=== PATIENT | male | born 1985 | race Caucasian/White ===

== ENCOUNTER 2023-11-28 07:52 | Emergency (ER) | payer BC, SELFPAY ==
[2023-11-28 07:54] VITALS: BP 126/90
--- NOTE | 2023-11-28 08:54 | ED.GENMED ---
History of Present Illness
General
Chief Complaint: Abdominal Symptoms
Source: patient
Exam Limitations: none
Time Seen by Provider: 11/28/23 08:40
Nursing documentation reviewed up to this point in time: agreed with
Travel History
Have you had any contact with someone who has COVID-19?: No
Do you have any symptoms of coronavirus? Fever > 100 degrees, chills, cough, shortness of breath, sore throat, loss of taste or smell, muscle aches, or headache?: No
History of Present Illness
History of Present Illness:
38-year-old male with past medical history of ulcerative colitis who presents to the emergency room for evaluation of nausea, vomiting, diarrhea in the setting of known influenza. Patient states that he started feeling ill 4 days ago on Friday
evening�he says that he had a low-grade fever and some nausea. He says that the next day woke up with vomiting and diarrhea. He went to his primary care physician who swabbed him for influenza and it was positive. He was started on Tamiflu and
given Zofran as needed for nausea. He says that despite these medications he actually has had continued nausea and vomiting multiple episodes daily (nonbloody nonbilious). Also reports multiple daily episodes of diarrhea. He says that he has
adjusted his diet to be essentially liquid only but still unable to tolerate things by mouth which prompted him to come to the emergency room to be assessed. He has taken the Zofran at home but says that he is unable to keep the pills down
(prescribed tablets not ODT). He has had mild cough and rhinorrhea as well. No shortness of breath or chest pain. He says he will occasionally get some crampy abdominal pain with diarrhea. He denies any other complaints.
Past History
Past History
ED Past Medical History: Other (ulcerative colitis)
ED Past Surgical History: None
Social History
Tobacco: Non-smoker
Alcohol: None
Drug: None
Personal: Single
Living: with family
Employment: Employed
Family History
Family History: Other (Noncontributory)
Review of Systems
Review of Systems
All Other Systems: ROS reviewed and negative except as documented in HPI and ROS
Constitutional: Reports fever and chills
EENT: Reports runny nose; Denies sore throat
Respiratory: Reports cough; Denies trouble breathing
Cardiac: Denies chest pain
ABD/GI: Reports abdominal pain (Occasionally with bowel movements/diarrhea), nausea, vomiting and diarrhea
: Denies flank pain
Musculoskeletal: Denies neck pain or back pain
Neurological: Denies headache
Phy Exam
Physical Exam
Physical Exam:
General: Awake, alert, oriented x3; no acute distress
Head: Normocephalic, atraumatic
Eyes: Conjunctiva normal, sclera anicteric
Throat: Airway intact, mucous membranes slightly dry
Neck: Trachea midline, supple without meningismus
Lungs: Clear to auscultation bilaterally, no wheezing, rales, rhonchi
Heart: Tachycardia with regular rhythm, no murmurs, gallops, or rubs
Abd: Soft, non distended, nontender to deep palpation
Neuro: Cranial nerves grossly intact, speech fluid
Skin: no rash
Extremities: No edema in extremities, warm and well-perfused
Scores
Heart Failure Risk
Heart Failure Risk Score: Not Applicable
Heart Score for Chest Pain Patients
STEMI patient?: Not applicable
Withdrawal Assessment of Alcohol
Withdrawal Assessment Completed?: Not applicable
Course
Orders/Labs/Results
Orders:
Orders
11/28/23 08:41
0.9% Sodium Chloride 1000 ml [Nss] 1,000 ml IV BOLUS
Ondansetron Injectable [Zofran] 4 mg IV NOW STA
11/28/23 09:09
Complete Blood Count/With Diff Urgent
Comprehensive Metabolic Panel Urgent
Abnormal Lab Results
11/28/23
09:09
MPV 11.0 H fL
(7.4-10.4)
Absolute Lymphs (auto) 0.8 L 10^3/uL
(1.2-3.4)
Absolute Monos (auto) 0.8 H 10^3/uL
(0.1-0.6)
Lymphocytes % 14.7 L %
(20.5-51.1)
Monocytes % 15.7 H %
(1.7-9.3)
Sodium 134 L mmol/L
(135-145)
Glucose 108 H mg/dl
(70-99)
Total Bilirubin 1.4 H mg/dl
(0.2-1.3)
AST 104 H U/L
(17-59)
ALT 90 H U/L
(0-50)
Total Protein 6.2 L g/dl
(6.3-8.2)
11/28/23 09:09
11/28/23 09:09
Vital Signs
Initial and Last Documented VS:
Initial Vital Signs
Temp Pulse Resp BP Pulse Ox
36.7 C 106 16 126/90 96
11/28/23 07:54 11/28/23 07:54 11/28/23 07:54 11/28/23 07:54 11/28/23 07:54
Last Documented Vital Signs
Temp Pulse Resp BP Pulse Ox
36.8 C 75 16 113/82 95
11/28/23 09:22 11/28/23 10:31 11/28/23 10:31 11/28/23 10:31 11/28/23 10:31
MDM/Problems Addressed
Differential Diagnosis Includes:
Influenza/viral illness, UC flare/colitis
MDM/Problems Addressed:
38-year-old male presents for evaluation of nausea, vomiting, diarrhea (also having some mild URI symptoms) in the setting of positive outpatient influenza swab. Presents because he is still having significant vomiting despite Zofran as
outpatient�has not been able to keep tablets down. He is tachycardic otherwise normal vitals. Physical exam as above�he does appear mildly dehydrated. Plan to place an IV check labs including a CBC and a CMP; will treat with some IV fluids and IV
Zofran. Will hold off on repeat influenza swab as he was already swabbed and positive 2 days ago as an outpatient. Will monitor closely reassess after the above.
Labs reviewed: CBC unremarkable; CMP shows mildly abnormal LFTs suspect likely in the setting of viral syndrome�while cholelithiasis is always a consideration with nausea and vomiting he has only occasional crampy pain with bowel movements and no
tenderness on exam; very low clinical suspicion for cholecystitis; no emergent indication for abdominal imaging at this point. IV fluids are in progress, continue to monitor.
Patient p.o. without vomiting here. He had subjective improvement in his nausea with Zofran and is feeling a bit better after fluids. I think he is stable for discharge at this point in time. Advised him to drink plenty of fluids at home will
change Zofran prescription to ODT. Advised to discontinue Tamiflu as I suspect that this is likely contributing to his nausea/vomiting and I think potential adverse effects likely trump any potential benefit for this patient. He is in agreement
with this. He will follow-up with his primary care physician. Spoke to him about return precautions all questions answered.
*Pulse Oximetry
Patient hypoxic: no
*Critical Care Note
Total Time (30-74mins, 75-104mins- exclusive of procedures): Not Applicable
Data Reviewed
Review of Other/Old Records Reveals: Labs
Source: patient and records
Further Testing Considered But Not Given:
Considered abdominal imaging such as an upper abdominal ultrasound as above
ED Attending Note
-
Portions of this chart may have been created with voice recognition software.� Occasional wrong word or��sound alike� substitutions may have occurred due to the inherent limitations of voice recognition software.
Discharge Plan
Departure
Patient Disposition: Home (Routine Discharge)
Date of Disposition: 11/28/23
Time of Disposition: 10:58
Patient with high blood pressure during this ER visit?: No
Discharge Problem:
Influenza, Dehydration, Nausea & vomiting
Instructions: Flu, Adult (DC), Nausea and Vomiting, Adult (DC), Dehydration, Adult ED
Prescriptions:
New
ondansetron 4 mg tablet,disintegrating
4 mg PO TIDPRN PRN (Reason: nausea/vomiting) Qty: 20 0RF
No Action
cholecalciferol (vitamin D3) 2,000 UNITS tablet
4,000 units PO DAILY
prednisone 10 MG tablet
10 mg PO DAILY Qty: 90 0RF
Rx Instructions:
take 50mg daily for 14 days, then decrease by 5mg a day every 7 days
mesalamine 60 ML enema
60 ml [place] DAILY Qty: 30 0RF
mesalamine [Lialda] 1.2 GM tablet,delayed release (DR/EC)
4.8 gm PO DAILY Qty: 120 0RF
Referrals:
Alix Cerna PA [Family Provider] - Call in 1-3 days for appt
Activity Restrictions/Additional Instructions:
Thank you for visiting the Emergency Department at [facility].
1. Please schedule a follow up appointment as directed. Call first thing tomorrow morning to make an appointment.
2. If indicated, please take your medications as instructed and indicated on discharge paperwork.
3. If any of your symptoms do not improve, or persist, or become more severe within 6-12 hours, please return to the emergency department for further care.
4. Please return to the emergency department if you develop a headache, neck pain/stiffness, fever greater than 100.4F, chest pain, shortness of breath, persistent nausea, vomiting, slurred speech, difficulty walking, numbness/tingling, weakness,
signs of infection or any other symptoms that are worrisome to you.
Please call [phone] if you have any questions.
Interventions
Interventions:
*Risk Screen - Suicide Last Done: 11/28/23 07:54
*General Assessment Last Done: 11/28/23 07:54
*Neglect/Abuse Screening Last Done: 11/28/23 07:54
ED- Fall Risk Assessment Last Done: 11/28/23 09:22
*ED COVID-19 Vaccine History Last Done: 11/28/23 09:22
AM-Glvjql-Ssneiptdjz Assessment Last Done: 11/28/23 09:22
[2023-11-28] MEDS: ZOFRAN 4 MG IV (09:07)
[2023-11-28] MEDS: NSS 1000 IV (09:08)
[2023-11-28 09:22] VITALS: BP 114/84; BMI 20.9
[2023-11-28 09:28] LABS: % Basophils 0.4 % (0-2); % Immature Granulocytes 0.4 % (0-0.5); % Lymphocytes 14.7 % (20.5-51.1); % Monocytes 15.7 % (1.7-9.3); % Neutrophils 68.8 % (42.2-75.2); Absolute Lymphocytes 0.8 10^3/uL (1.2-3.4); Absolute Monocytes 0.8 10^3/uL (0.1-0.6); Absolute Neutrophils 3.5 10^3/uL (1.4-6.5); Hematocrit 47.3 % (39.0-52.0); Mean Corp Hgb Conc. 35.9 g/dL (33.0-37.0); Mean Corpuscular Hgb 30.8 pg (27.0-31.0); Mean Corpuscular Volume 85.7 fL (80.0-94.0); Nucleated Red Blood Cells % 0 % (-); Platelet Count 204 10^3/uL (130-400); Red Blood Cell Count 5.52 10^6/uL (4.70-6.10); Red Cell Dist. Width 12.4 % (11.5-14.5); White Blood Cell Count 5.1 10^3/uL (4.8-10.8)
[2023-11-28 09:38] LABS: ALT (SGPT) 90 U/L (0-50); AST (SGOT) 104 U/L (17-59); Albumin 3.7 g/dl (3.5-5.0); Alkaline Phosphatase 74 U/L (38-126); Blood Urea Nitrogen 19 mg/dl (9-20); Calcium 8.5 mg/dl (8.4-10.2); Carbon Dioxide 28 mmol/L (22-30); Chloride 100 mmol/L (98-107); Estimated Creatinine Clearance 86 ml/min; Glucose 108 mg/dl (70-99); Potassium 3.5 mmol/L (3.5-5.1); Sodium 134 mmol/L (135-145); Total Bilirubin 1.4 mg/dl (0.2-1.3); Total Protein 6.2 g/dl (6.3-8.2); eGFR > 60.00
[2023-11-28 10:31] VITALS: BP 113/82
== END 2023-11-28 11:38 | disposition home or self-care (01) ==
LOC: EMR 07:52
PROVIDERS: EMERGENCY PHYSICIAN Emergency Medicine; FAMILY PHYSICIAN Physician Assistant Medical
DX: J11.1 Influenza due to unidentified influenza virus with other respiratory manifestations (principal); E86.0 Dehydration; R11.2 Nausea with vomiting, unspecified; R19.7 Diarrhea, unspecified; R00.0 Tachycardia, unspecified; K51.90 Ulcerative colitis, unspecified, without complications; Z91.048 Other nonmedicinal substance allergy status
CPT/HCPCS: 99284; 96374; 96361; 80053; 85025

== ENCOUNTER 2023-12-02 14:38 | Inpatient (IN) | payer BC, SELFPAY ==
[2023-12-02] VITALS (10 sets, daily range): BP systolic 108–133; BP diastolic 62–87; BMI 21.4; BMI 22.1
[2023-12-02] MEDS: NSS 1000 IV (08:41)
[2023-12-02 08:54] LABS: % Basophils 0.3 % (0-2); % Immature Granulocytes 0.8 % (0-0.5); % Lymphocytes 16.2 % (20.5-51.1); % Monocytes 10.2 % (1.7-9.3); % Neutrophils 70.5 % (42.2-75.2); Absolute Eosinophils 0.1 10^3/uL (0-0.7); Absolute Immature Granulocytes 0.1 10^3/uL (0-0.05); Absolute Lymphocytes 1.1 10^3/uL (1.2-3.4); Absolute Monocytes 0.7 10^3/uL (0.1-0.6); Absolute Neutrophils 4.7 10^3/uL (1.4-6.5); Hematocrit 41.7 % (39.0-52.0); Mean Corpuscular Hgb 30.3 pg (27.0-31.0); Mean Corpuscular Volume 84.2 fL (80.0-94.0); Mean Platelet Volume 10.7 fL (7.4-10.4); Nucleated Red Blood Cells % 0 % (-); Platelet Count 180 10^3/uL (130-400); Red Blood Cell Count 4.95 10^6/uL (4.70-6.10); Red Cell Dist. Width 12.4 % (11.5-14.5); White Blood Cell Count 6.7 10^3/uL (4.8-10.8)
[2023-12-02 09:03] LABS: ALT (SGPT) 105 U/L (0-50); AST (SGOT) 55 U/L (17-59); Albumin 3.1 g/dl (3.5-5.0); Alkaline Phosphatase 87 U/L (38-126); Blood Urea Nitrogen 8 mg/dl (9-20); Calcium 7.8 mg/dl (8.4-10.2); Carbon Dioxide 30 mmol/L (22-30); Chloride 98 mmol/L (98-107); Glucose 143 mg/dl (70-99); Lipase 90 U/L (23-300); Potassium 2.9 mmol/L (3.5-5.1); Sodium 133 mmol/L (135-145); Total Bilirubin 0.8 mg/dl (0.2-1.3); Total Protein 5.4 g/dl (6.3-8.2); eGFR > 60.00
--- NOTE | 2023-12-02 09:11 | ED.GENMED ---
History of Present Illness
General
Chief Complaint: Abdominal Symptoms
Source: patient
Exam Limitations: none
Time Seen by Provider: 12/02/23 07:58
Travel History
Have you had any contact with someone who has COVID-19?: No
Do you have any symptoms of coronavirus? Fever > 100 degrees, chills, cough, shortness of breath, sore throat, loss of taste or smell, muscle aches, or headache?: No
History of Present Illness
History of Present Illness:
38-year-old male presents with persistent illness. He was here last week after having the flu. He was here because he was having trouble keeping things down and vomiting. He presents today for the same. Since being seen he feels like he is
gotten worse. He also notes increased cough. He denies a fever. He is nauseous without significant vomiting. He denies any significant loose stools. No other complaints at this time
Past History
Past History
ED Past Medical History: Other (ulcerative colitis)
ED Past Surgical History: None
Social History
Tobacco: Non-smoker
Alcohol: None
Drug: None
Personal: Single
Living: with family
Employment: Employed
Family History
Family History: Other (Noncontributory)
Phy Exam
Physical Exam
Physical Exam:
General: Well-appearing male no acute respiratory distress
HEENT: Normocephalic atraumatic mucosa dry neck is supple
Heart: Regular rate and rhythm no murmurs
Lungs: Clear to auscultation bilaterally no wheezing
Abdomen mild diffusely tender. No guarding rebound normal bowel sounds nondistended
Extremities: No cyanosis
Course
Orders/Labs/Results
Orders:
Orders
12/02/23 08:05
0.9% Sodium Chloride 1000 ml [Nss] 1,000 ml IV BOLUS
CR Chest - 2 Views Urgent
Comment:
Reason For Exam: cough, sob
12/02/23 08:34
Complete Blood Count/With Diff Urgent
Comprehensive Metabolic Panel Urgent
Lipase Urgent
12/02/23 09:07
Potassium Chloride [KCl] 40 meq PO NOW STA
12/02/23 09:32
Potassium Chloride [KCl] 20 meq 0.9% Sodium Chloride 150 ml [Nss] 150 ml IV NOW
12/02/23 10:16
CT Abd/pelvis W Iv Cont Urgent
Comment:
Reason For Exam: abdominal pain, vomiting
12/02/23 12:34
STOOL [C difficile Antigen & Toxins] Urgent
RACHEL Source: Feces/Stool
Specimen Description:
Stool Culture Urgent
RACHEL Source: Feces/Stool
Specimen Description:
12/02/23 12:56
CRP [C-Reactive Protein] Urgent
Stool For WBC Urgent
RACHEL Source: Feces/Stool
Specimen Description:
Abnormal Lab Results
12/02/23
08:34
MPV 10.7 H fL
(7.4-10.4)
Abs Immat Gran (auto) 0.1 H 10^3/uL
(0-0.05)
Absolute Lymphs (auto) 1.1 L 10^3/uL
(1.2-3.4)
Absolute Monos (auto) 0.7 H 10^3/uL
(0.1-0.6)
Immature Gran % 0.8 H %
(0-0.5)
Lymphocytes % 16.2 L %
(20.5-51.1)
Monocytes % 10.2 H %
(1.7-9.3)
Sodium 133 L mmol/L
(135-145)
Potassium 2.9 L mmol/L
(3.5-5.1)
BUN 8 L mg/dl
(9-20)
Glucose 143 H mg/dl
(70-99)
Calcium 7.8 L mg/dl
(8.4-10.2)
ALT 105 H U/L
(0-50)
Total Protein 5.4 L g/dl
(6.3-8.2)
Albumin 3.1 L g/dl
(3.5-5.0)
12/02/23 08:34
12/02/23 08:34
Vital Signs
Initial and Last Documented VS:
Initial Vital Signs
Temp Pulse Resp BP Pulse Ox
97.9 F 81 16 133/84 98
12/02/23 07:49 12/02/23 07:49 12/02/23 07:49 12/02/23 07:49 12/02/23 07:49
Last Documented Vital Signs
Temp Pulse Resp BP Pulse Ox
97.9 F 83 16 111/81 96
12/02/23 07:49 12/02/23 08:37 12/02/23 08:37 12/02/23 08:36 12/02/23 08:37
MDM/Problems Addressed
Differential Diagnosis Includes:
Patient appears dry on exam. Was here for similar symptoms last week. Will check labs again. Hydrate. Chest x-ray pending given increased cough.
*Critical Care Note
Total Time (30-74mins, 75-104mins- exclusive of procedures): Not Applicable
Update Note
Update Note:
Chest x-ray clear. Patient reexamined still with abdominal tenderness. CT of the abdomen pelvis was ordered which demonstrates pancolitis. Potassium was noted to be 2.9. Patient was here last week for similar symptoms and is getting worse at
home. He was hydrated. He was given IV and p.o. potassium. Discussed findings with GI. Stool studies were ordered however sample not provided. Will admit to hospital for pancolitis, hypokalemia and dehydration
ED Attending Note
-
Portions of this chart may have been created with voice recognition software.� Occasional wrong word or��sound alike� substitutions may have occurred due to the inherent limitations of voice recognition software.
Discharge Plan
Departure
Patient Disposition: Admit
Date of Disposition: 12/02/23
Time of Disposition: 13:02
Admit to: Telemetry
Presentation/result/management discussed w/ accepting MD/DO: Hospitalist
Discharge Problem:
Pancolitis, Hypokalemia
Prescriptions:
No Action
cholecalciferol (vitamin D3) 2,000 UNITS tablet
4,000 units PO DAILY
prednisone 10 MG tablet
10 mg PO DAILY Qty: 90 0RF
Rx Instructions:
take 50mg daily for 14 days, then decrease by 5mg a day every 7 days
mesalamine 60 ML enema
60 ml [place] DAILY Qty: 30 0RF
mesalamine [Lialda] 1.2 GM tablet,delayed release (DR/EC)
4.8 gm PO DAILY Qty: 120 0RF
ondansetron 4 mg tablet,disintegrating
4 mg PO TIDPRN PRN (Reason: nausea/vomiting) Qty: 20 0RF
Referrals:
Alix Cerna PA [Family Provider] -
Interventions
Interventions:
*Risk Screen - Suicide Last Done: 12/02/23 07:49
*General Assessment Last Done: 12/02/23 07:49
*Neglect/Abuse Screening Last Done: 12/02/23 07:49
[2023-12-02] MEDS: KCL 40 MEQ PO (10:18)
[2023-12-02] MEDS: KCL 160 MEQ IV (10:19)
--- NOTE | 2023-12-02 14:04 | HPS.HSE ---
Family Physician
-
Family Physician: Alix Cerna
Chief Complaint
-
Nausea/vomiting/diarrhea
History of Present Illness
38-year-old male with a past medical history of ulcerative colitis on mesalamine presents with a 9-day history of worsening nausea, vomiting, diarrhea, and abdominal pain. Patient was seen in the emergency room on 11/28/2023, diagnosed with the flu,
and discharged after IV hydration and antiemetics. He reports persistent vomiting, diarrhea, and abdominal pain, which he feels has since worsened. His diarrhea is liquid green. Initially there were specks of blood, which has since resolved.
Patient reports bilateral lower quadrant abdominal pain. No fever, no chills.
Medical History
Past Medical History
Past Medical History: Reports Other
Additional Past Medical History:
Ulcerative colitis
Past Surgical History: Reports None and Other
Social History
Tobacco: Non-smoker
Alcohol: None
Living: With Family
Family History
Family History: Not pertinent
Allergies / Home Medications
Allergies reflects when Allergies were last updated in [employer].
Home Medications with original date entered in [employer]
Allergy/Medication List:
Allergies
Allergy/AdvReac Type Severity Reaction Status Date / Time
house dust Allergy sneezing Verified 11/28/23 07:54
Home Medications Table - record
Medication Instructions Recorded Confirmed
[id number]-[id number] 250 2 tab PO BIDPRN PRN mild pain 12/02/23 12/02/23
mg-250 mg-65 mg tablet (Excedrin
Extra Strength)
mesalamine 800 mg tablet,delayed 1,600 mg PO BID Gastrointestinal 12/02/23 12/02/23
release Issue
ondansetron 4 mg disintegrating 4 mg PO Q8H PRN nausea/vomiting 12/02/23 12/02/23
tablet
Review of Systems
-
A 12 point ROS was completed and negative except as noted: Yes
Physical Exam
Vital Signs
Vital Signs
Temp Pulse Resp BP Pulse Ox
97.9 F 83 16 111/81 96
12/02/23 07:49 12/02/23 08:37 12/02/23 08:37 12/02/23 08:36 12/02/23 08:37
Physical Exam
General: No Apparent Distress
HEENT: NormoCephalic, Anicteric, Moist mucous membranes and Atraumatic
Respiratory: Clear
Cardiac: S1/S2 and Regular Rhythm
GI: Soft, Non Distended and Tender (Tender at the lower quadrants bilaterally, no masses guarding or rebound)
Musculoskeletal: No Clubbing, No Cyanosis and No Edema
Skin: Warm and Dry
Neuro: Awake, Alert and Oriented
Psych: Calm
Laboratory Results
-
12/02/23 08:34
12/02/23 08:34
Laboratory Results
Total Bilirubin 0.8 mg/dl (0.2-1.3) 12/02/23 08:34
AST 55 U/L (17-59) 12/02/23 08:34
ALT 105 U/L (0-50) H 12/02/23 08:34
Alkaline Phosphatase 87 U/L (38-126) 12/02/23 08:34
Lipase 90 U/L (23-300) 12/02/23 08:34
Impression/Plan
-
HPI: 38-year-old male with a past medical history of ulcerative colitis on mesalamine presents with a 9-day history of worsening nausea, vomiting, diarrhea, and abdominal pain. Patient was seen in the emergency room on 11/28/2023, diagnosed with the
flu, and discharged after IV hydration and antiemetics. He reports persistent vomiting, diarrhea, and abdominal pain, which he feels has since worsened. His diarrhea is liquid green. Initially there were specks of blood, which has since resolved.
Patient reports bilateral lower quadrant abdominal pain. No fever, no chills.
CT abd/pelvis:
1. � Pancolitis. The appearance as detailed above is most suspicious for ulcerative colitis. Infectious etiology considered less likely.
2. � Hepatic fatty infiltration.
#Probable ulcerative colitis flare
Patient follows with Dr. Condon
Check stool studies, consult GI
Clear liquid diet, IV fluids, antiemetics, continue mesalamine
#Fatty liver
Outpatient follow-up with GI
#Hypokalemia
Repleted by IV and p.o., check Mg level
#Hypovolemic hyponatremia
IV fluids as above
#Hyperglycemia
Check hemoglobin A1c
DVT prophylaxis�SCDs
Full code
[2023-12-02 15:52] LABS: Magnesium 2.3 mg/dl (1.6-2.3); Phosphorus 3.2 mg/dl (2.5-4.5)
--- NOTE | 2023-12-02 17:05 | CON.GI ---
Addendum entered and electronically signed by Jayshree Mar MD 12/02/23 18:14:
I saw and examined the patient.
The GALLERY ASSISTANT or PA's note was reviewed and I agree with the note.
Comment: 38-year-old male with history of ulcerative colitis since 2004 on mesalamine, presenting with complaints of nonbloody diarrhea, nausea, dry heaving, abdominal discomfort and some weight loss in the last month. Reports about 6-8 loose stool
a day, nonbloody, reports being compliant with mesalamine for the most part, has not followed up with GI office recently. Similar symptoms and mom a month ago but resolved quickly but his symptoms continued. Some heartburn, discomfort in the mid
abdomen. No trouble swallowing. No regular NSAID use. Flexible sigmoidoscopy in 2020 with moderate active colitis with positive Cryptosporidium. In the ER, no leukocytosis noted, hyponatremia and hypokalemia, ALT elevated at 105, LFTs in normal
range.
CT with IV and oral contrast showing pancolitis and have fatty liver.
-Nonbloody diarrhea with nausea and dry heaves in the last month
Rule out infectious versus flareup of inflammatory bowel disease
Agree with checking stool for infection, cultures, C. difficile, WBC, Cryptosporidium and Giardia
Will also check CRP and fecal calprotectin
Hold off antibiotics, continue IV hydration, correct electrolytes and replete as needed
Clear liquid diet for now, advance as tolerated
If infectious workup negative, will need flexible sigmoidoscopy.
Continue mesalamine for now.
Follow-up with Dr. Condon as outpatient
Original Note:
Consultation
-
Date/Time Consultation Requested: 12/02/23 1420
Date/Time Consultation Performed: 12/02/23 1700
Requesting Provider: Marcos Gabriel MD
Performing Provider: VERA Summers, Jayshree Mar MD
Reason for Consultation: diarrhea, abdominal pain
Medical History
Chief Complaint / HPI
Chief Complaint: diarrhea, abdominal pain
History of Present Illness:
Pt is a 38yo presents with longstanding ulcerative colitis since 2004 on chronic mesalamine prior cryptosporidium infection, vitamin D deficiency with onset of change in stool pattern with diarrhea for last month. He was recently in ER and
diagnosed with flu. He continued with nausea with dry heaves, abdominal pain and diarrhea and returns for evaluation. On admission CT noted with Pancolitis. The appearance as detailed above is most suspicious for ulcerative colitis. Infectious
etiology considered less likely . Hepatic fatty infiltration. CRP pending.
Pt currently admits to GERD, dry heaves with nausea/vomiting, and 4/10 mid abdominal pain. He is currently having about 6 stools per day. He admits to some streaks of blood but not gross bleeding. + few lbs wt loss with some decreased
appetite over last 2 weeks. Pt denies dysphagia, constipation or black stools. Pt also admits to missing some Mesalamine dose with nausea and vomiting issues over last 2 weeks. Last colonoscopy 03/2021 with UC in remission single ulcer UC valve.
After completed flex sig 06/2021 with UC moderate active colitis in setting of + crypto.
�
Past Medical History
Past Medical History: Other (ulcerative colitis, cryptosporidium infection, vitamin deficiency)
Social History
Tobacco: Non-Smoker
Alcohol: None
Drug: None
Living: With Family
Employment: Employed
Family History
Family History: Other (no family hx IBD)
Allergies / Home Medications
Allergy/AdvReac Type Severity Reaction Status Date / Time
house dust Allergy sneezing Verified 11/28/23 07:54
Medication Instructions Recorded
eltdurh-ujymwbrhqbiwj-ztqsaooq 250 2 tab PO BIDPRN PRN mild pain 12/02/23
mg-250 mg-65 mg tablet (Excedrin
Extra Strength)
mesalamine 800 mg tablet,delayed 1,600 mg PO BID Gastrointestinal 12/02/23
release Issue
ondansetron 4 mg disintegrating 4 mg PO Q8H PRN nausea/vomiting 12/02/23
tablet
Review of Systems
-
History Source: Patient
Constitutional: Reports Fever and Weight Loss
EENT: Reports No Symptoms
Respiratory: Reports Trouble Breathing (mild at times )
Cardiac: Reports Chest Pain (mild at times)
Abdomen/GI: Reports Abdominal Pain, Nausea, Vomiting, Diarrhea and Bloody Stools (streaks of blood)
: Reports No Symptoms
Musculoskeletal: Reports No Symptoms
Skin: Reports No Symptoms
Neurological: Reports Weakness
Endocrine: Reports No Symptoms
Hematologic/Lymphatic: Reports No Symptoms
Vital Signs
Temp Pulse Resp BP Pulse Ox
97.9 F 72 19 114/84 94
12/02/23 07:49 12/02/23 12:00 12/02/23 12:00 12/02/23 13:00 12/02/23 13:45
Physical Exam
Exam
General: Well Developed, Well Nourished and No Apparent Distress
HEENT: Normocephalic, Anicteric and Moist Mucous Membranes
Respiratory: Clear
Cardiac: Regular Rhythm
GI: Soft, Non Distended and Tender (mild tenderness )
Genito-urinary: No Costovertebral Tender
Musculoskeletal: No Clubbing and No Cyanosis
Skin: Warm and Dry
Neuro: Awake, Alert and AO x 3
Psych: Calm
Results
WBC 6.7 10^3/uL (4.8-10.8) 12/02/23 08:34
Hgb 15.0 g/dL (13.0-18.0) 12/02/23 08:34
Hct 41.7 % (39.0-52.0) 12/02/23 08:34
MCV 84.2 fL (80.0-94.0) 12/02/23 08:34
Plt Count 180 10^3/uL (130-400) 12/02/23 08:34
Absolute Neuts (auto) 4.7 10^3/uL (1.4-6.5) 12/02/23 08:34
Sodium 133 mmol/L (135-145) L 12/02/23 08:34
Potassium 2.9 mmol/L (3.5-5.1) L 12/02/23 08:34
Chloride 98 mmol/L (98-107) 12/02/23 08:34
Carbon Dioxide 30 mmol/L (22-30) 12/02/23 08:34
BUN 8 mg/dl (9-20) L 12/02/23 08:34
Creatinine 0.9 mg/dL (0.7-1.3) 12/02/23 08:34
Calcium 7.8 mg/dl (8.4-10.2) L 12/02/23 08:34
Total Bilirubin 0.8 mg/dl (0.2-1.3) 12/02/23 08:34
AST 55 U/L (17-59) 12/02/23 08:34
ALT 105 U/L (0-50) H 12/02/23 08:34
Alkaline Phosphatase 87 U/L (38-126) 12/02/23 08:34
Lipase 90 U/L (23-300) 12/02/23 08:34
Diagnostic Image Results:
12/02/23 �CT Abd/pelvis W Iv Cont
1. � Pancolitis. The appearance as detailed above is most suspicious for ulcerative colitis. Infectious etiology considered less likely.
2. � Hepatic fatty infiltration.
Prior GI Procedures:
Colonoscopy:�03/14/2021 [facility] � - Inactive (Jaramillo Score 0) extensive ulcerative
�� � � � � � � � � � � colitis, in remission, improved since the last
�� � � � � � � � � � � examination. Biopsied throughout the colon.
�� � � � � � � � � � � - A single (solitary) ulcer at the ileocecal valve.
�� � � � � � � � � � � - The examined portion of the ileum was normal.
bx no active quiescent colitis
flex si06/09/2021�[facility] �� Likely UC flare induced by now resolved infection.
�� � � � � � � � � � � - Severe (Jaramillo Score 3) ulcerative colitis, worsened
�� � � � � � � � � � � since the last examination. Biopsied and biopsied for
�� � � � � � � � � � � CMV. bx moderate chronic active colitis
Assessment / Plan
-
Pt is a 38yo presents with longstanding ulcerative colitis since 2004 on chronic mesalamine prior cryptosporidium infection, vitamin D deficiency with onset of change in stool pattern with diarrhea for last month. He was recently in ER and
diagnosed with flu. He continued with nausea with dry heaves, abdominal pain and diarrhea and returns for evaluation. On admission CT noted with Pancolitis. The appearance as detailed above is most suspicious for ulcerative colitis. Infectious
etiology considered less likely . Hepatic fatty infiltration.
-abdominal pain with diarrhea
-nausea/dry heaves
-CT concern for pancolitis
-hx longstanding ulcerative colitis on chronic Mesalamine
-hypokalemia/hyponatremia
-recent flu +
-hx prior cryptosporidium
- hx cryptosporidium
PLAN:etiology of pancolitis related to UC flare, infectious process vs other
CRP pending will add fecal guerrero
stool studies pending to rule out infectious process
cont mesalamine -- currently 1.6 gram BID
pt was also taking Rowasa at HS will restart
abx held on admission
ok for clear diet
consider eventual flex vs colon IP vs OP pending clinical course
-
-
-
Thank you for consultation and allowing me to participate in the patient's care. Please call the biomedical electronics technician GI physician during the after hours with any questions or concerns.
[2023-12-02] MEDS: NSS with KCL 40 MEQ 1000 IV (18:11)
[2023-12-02] MEDS: ASACOL, DELZICOL DR 1600 MG PO (19:55)
[2023-12-02] MEDS: DILAUDID 1 MG IV (20:45)
[2023-12-02] MEDS: ROWASA ENEMA RECTAL (21:59)
[2023-12-03] MEDS: NSS with KCL 40 MEQ 1000 IV (07:23)
[2023-12-03] MEDS: ASACOL, DELZICOL DR 1600 MG PO ×2 (07:24→19:34)
[2023-12-03] MEDS: DILAUDID 0.5 MG IV ×2 (07:29→17:17)
[2023-12-03 07:30] VITALS: BP 119/73
[2023-12-03 07:53] LABS: Hematocrit 41.7 % (39.0-52.0); Hemoglobin 14.4 g/dL (13.0-18.0); Mean Corp Hgb Conc. 34.5 g/dL (33.0-37.0); Mean Corpuscular Hgb 30.7 pg (27.0-31.0); Mean Corpuscular Volume 88.9 fL (80.0-94.0); Mean Platelet Volume 11.4 fL (7.4-10.4); Platelet Count 205 10^3/uL (130-400); Red Blood Cell Count 4.69 10^6/uL (4.70-6.10); Red Cell Dist. Width 12.7 % (11.5-14.5); White Blood Cell Count 7.4 10^3/uL (4.8-10.8)
--- NOTE | 2023-12-03 07:58 | W.PN.HOSP.TC ---
Today's Communication/Plan
-
see bold
Assessment / Plan
Assessment / Plan
HPI: 38-year-old male with a past medical history of ulcerative colitis on mesalamine presents with a 9-day history of worsening nausea, vomiting, diarrhea, and abdominal pain.� Patient was seen in the emergency room on 11/28/2023, diagnosed with the
flu, and discharged after IV hydration and antiemetics.� He reports persistent vomiting, diarrhea, and abdominal pain, which he feels has since worsened.� His diarrhea is liquid green.� Initially there were specks of blood, which has since
resolved.� Patient reports bilateral lower quadrant abdominal pain.� No fever, no chills.
CT abd/pelvis:
1. � Pancolitis. The appearance as detailed above is most suspicious for ulcerative colitis. Infectious etiology considered less likely.
2. � Hepatic fatty infiltration.
#Probable ulcerative colitis flare
Patient follows with Dr. Condon
Stool studies negative for C. difficile, negative for Cryptosporidium/Giardia, negative for Salmonella/Shigella, negative for Campylobacter/Shiga toxin.
Stool cultures pending
GI following, likely will need flex sig
Clear liquid diet, IV fluids, antiemetics, continue mesalamine
#Fatty liver
Outpatient follow-up with GI
#Hypokalemia
Repleted and resolved
#Hypovolemic hyponatremia
IV fluids as above
#Hyperglycemia
Check hemoglobin A1c
DVT prophylaxis�SCDs
Full code
Physical Exam
General: No acute distress
HEENT: Normocephalic, Atraumatic, EOMI, MMM
Respiratory: Clear to Auscultation bilaterally
Cardiac: Normal S1/S2, Regular Rate and Rhythm
GI: Soft, tender at the lower quadrants, Nondistended, Normal Bowel Sounds
Extremities: No Clubbing, Cyanosis, or Edema
Anticipated Discharge: 24 - 48 hours
Subjective/Interval History
-
Date of Service: December 03, 2023
Continues to have diarrhea. Nausea and vomiting resolved. Still having lower abdominal pain.
Objective Data
-
Labs:
Laboratory Results
12/03/23
07:
WBC Pending
Hgb Pending
Hct Pending
Plt Count Pending
Sodium Pending
Potassium Pending
Chloride Pending
Carbon Dioxide Pending
BUN Pending
Creatinine Pending
Glucose Pending
Calcium Pending
Vital Signs:
Vital Signs
Temp Pulse Resp BP Pulse Ox
97.9 F 62 18 109/62 95
12/02/23 23:29 12/02/23 23:29 12/02/23 23:29 12/02/23 23:29 12/02/23 18:43
I&O
12/02/23 12/03/23 12/04/23
06:59 06:59 06:59
Intake Total 2099
Balance 2099
[2023-12-03 08:51] LABS: Blood Urea Nitrogen 5 mg/dl (9-20); Carbon Dioxide 26 mmol/L (22-30); Chloride 104 mmol/L (98-107); Estimated Creatinine Clearance 125 ml/min; Glucose 83 mg/dl (70-99); Magnesium 2.4 mg/dl (1.6-2.3); Phosphorus 3.1 mg/dl (2.5-4.5); Sodium 138 mmol/L (135-145); eGFR > 60.00
[2023-12-03 14:26] LABS: Glycohemoglobin (HgbA1c) 5.7 % (4.0-5.6)
--- NOTE | 2023-12-03 14:31 | W.PN.GI.CBS2 ---
Addendum entered and electronically signed by Jayshree Mar MD 12/03/23 19:04:
I saw and examined the patient.
The SHUTDOWN COORDINATOR or PA's note was reviewed and I agree with the note.
Comment: Patient continues to have nonbloody diarrhea, no abdominal pain. Tolerating diet.
Await stool cultures, stool white cells noted but no C. difficile, Cryptosporidium or Giardia.
Continue mesalamine tablets and Rowasa enema.
Currently on low residue diet.
If stool cultures negative, consider flexible sigmoidoscopy and possible steroids to help with acute symptoms.
Outpatient follow-up with Dr. Condon.
Original Note:
Today's Communication / Plan
-
PLAN:etiology of pancolitis related to UC flare, infectious process vs other
cdiff neg, many WBC's, culture pending add giardia/crypto cx
CRP 27.7, fecal guerrero pending
cont mesalamine -- currently 1.6 gram BID and rowasa
clear diet will allow low residue/low lactose trial
consider eventual flex vs colon IP vs OP pending clinical course if not improving vs empiric course of steroids
Assessment / Plan
-
Pt is a 38yo presents with longstanding ulcerative colitis since 2004 on chronic mesalamine prior cryptosporidium infection, vitamin D deficiency with onset of change in stool pattern with diarrhea for last month. He was recently in ER and
diagnosed with flu. He continued with nausea with dry heaves, abdominal pain and diarrhea and returns for evaluation. On admission CT noted with Pancolitis. The appearance as detailed above is most suspicious for ulcerative colitis. Infectious
etiology considered less likely . Hepatic fatty infiltration.
-abdominal pain with diarrhea
-nausea/dry heaves
-CT concern for pancolitis
-hx longstanding ulcerative colitis on chronic Mesalamine
-hypokalemia/hyponatremia
-recent flu +
-hx prior cryptosporidium
- hx cryptosporidium
PLAN:etiology of pancolitis related to UC flare, infectious process vs other
cdiff neg, many WBC's, culture pending add giardia/crypto cx
CRP 27.7, fecal guerrero pending
cont mesalamine -- currently 1.6 gram BID and rowasa
clear diet will allow low residue/low lactose trial
consider eventual flex vs colon IP vs OP pending clinical course if not improving vs empiric course of steroids
-
Subjective
Subjective
Date of Service: December 03, 2023
12/02 brown stool multiple stools on clear diet still some abdominal pain but feeling improved
Objective
Data Reviewed
Laboratory Data:
Laboratory Results
12/03/23 07:24
12/03/23 07:24
Laboratory Results
Phosphorus 3.1 mg/dl (2.5-4.5) 12/03/23 07:24
Magnesium 2.4 mg/dl (1.6-2.3) H 12/03/23 07:24
Total Bilirubin 0.8 mg/dl (0.2-1.3) 12/02/23 08:34
AST 55 U/L (17-59) 12/02/23 08:34
ALT 105 U/L (0-50) H 12/02/23 08:34
Alkaline Phosphatase 87 U/L (38-126) 12/02/23 08:34
Lipase 90 U/L (23-300) 12/02/23 08:34
Vital Signs and I&O:
Vital Signs
Temp Pulse Resp BP Pulse Ox
97.7 F 69 18 119/73 100
12/03/23 07:30 12/03/23 07:30 12/03/23 07:30 12/03/23 07:30 12/03/23 07:30
I&O
12/02/23 12/03/23 12/04/23
06:59 06:59 06:59
Intake Total 2099
Balance 2099
Physical Exam
Physical Exam
HEENT: Anicteric and Moist mucous membranes
Cardiology: Normal Sinus Rhythm
Pulmonary: Clear
GI: Soft, Non Distended and Tender (minimal)
Extremities: No Edema
Neuro: Non Focal
[2023-12-03 15:20] VITALS: BP 117/75
[2023-12-03 16:02] VITALS: BMI 22.1
--- NOTE | 2023-12-03 16:13 | CM ---
Patient seen bedside.
IA completed.
Patient lives with parents in a 2 story home.
Patient independent prior to admission.
Patient drives and works.
Patient with no hx VN.
Denies home care needs.
Plan: home no needs anticiapted.
[2023-12-03] MEDS: ROWASA ENEMA RECTAL (19:38)
[2023-12-03] MEDS: NSS with KCL 20 MEQ 1000 IV (21:20)
[2023-12-03 23:29] VITALS: BP 103/59
[2023-12-04 07:30] VITALS: BP 107/77
--- NOTE | 2023-12-04 07:31 | W.PN.HOSP.TC ---
Today's Communication/Plan
-
see bold
Assessment / Plan
Assessment / Plan
HPI: 38-year-old male with a past medical history of ulcerative colitis on mesalamine presents with a 9-day history of worsening nausea, vomiting, diarrhea, and abdominal pain.� Patient was seen in the emergency room on 11/28/2023, diagnosed with the
flu, and discharged after IV hydration and antiemetics.� He reports persistent vomiting, diarrhea, and abdominal pain, which he feels has since worsened.� His diarrhea is liquid green.� Initially there were specks of blood, which has since
resolved.� Patient reports bilateral lower quadrant abdominal pain.� No fever, no chills.
CT abd/pelvis:
1. � Pancolitis. The appearance as detailed above is most suspicious for ulcerative colitis. Infectious etiology considered less likely.
2. � Hepatic fatty infiltration.
#Probable ulcerative colitis flare
Patient follows with Dr. Condon
Stool studies negative for C. difficile, negative for Cryptosporidium/Giardia, negative for Salmonella/Shigella, negative for Campylobacter/Shiga toxin.
Stool cultures pending
GI following, recommend continue mesalamine p.o. and suppository
Tolerating low residue diet, continue IV fluids, pain meds
#Fatty liver
Outpatient follow-up with GI
#Hypokalemia
Repleted and resolved
#Hypovolemic hyponatremia
IV fluids as above
#Hyperglycemia
Check hemoglobin A1c
DVT prophylaxis�SCDs
Full code
Physical Exam
General: No acute distress
HEENT: Normocephalic, Atraumatic, EOMI, MMM
Respiratory: Clear to Auscultation bilaterally
Cardiac: Normal S1/S2, Regular Rate and Rhythm
GI: Soft, tender at the lower quadrants, Nondistended, Normal Bowel Sounds
Extremities: No Clubbing, Cyanosis, or Edema
Anticipated Discharge: Within 24 hours
Subjective/Interval History
-
Date of Service: December 04, 2023
Diarrhea and abdominal pain improving. Tolerating his low residue diet.
Objective Data
-
Labs:
Laboratory Results
12/04/23
06:00
WBC Pending
Hgb Pending
Hct Pending
Plt Count Pending
Sodium Pending
Potassium Pending
Chloride Pending
Carbon Dioxide Pending
BUN Pending
Creatinine Pending
Glucose Pending
Calcium Pending
Vital Signs:
Vital Signs
Temp Pulse Resp BP Pulse Ox
97.4 F 79 20 103/59 97
12/03/23 23:29 12/03/23 23:29 12/03/23 23:29 12/03/23 23:29 12/03/23 23:29
I&O
12/03/23 12/04/23 12/05/23
06:59 06:59 06:59
Intake Total 2099
Balance 2099
[2023-12-04] MEDS: ASACOL, DELZICOL DR 1600 MG PO ×2 (08:02→20:00)
[2023-12-04] MEDS: DILAUDID 0.5 MG IV (08:02)
[2023-12-04] MEDS: NSS with KCL 20 MEQ 1000 IV (08:03)
[2023-12-04 08:38] LABS: Hematocrit 42.4 % (39.0-52.0); Hemoglobin 14.5 g/dL (13.0-18.0); Mean Corp Hgb Conc. 34.2 g/dL (33.0-37.0); Mean Corpuscular Volume 87.8 fL (80.0-94.0); Platelet Count 236 10^3/uL (130-400); Red Blood Cell Count 4.83 10^6/uL (4.70-6.10); Red Cell Dist. Width 12.7 % (11.5-14.5)
[2023-12-04 09:05] LABS: Blood Urea Nitrogen < 2 mg/dl (9-20); Calcium 7.9 mg/dl (8.4-10.2); Carbon Dioxide 26 mmol/L (22-30); Chloride 108 mmol/L (98-107); Estimated Creatinine Clearance 125 ml/min; Glucose 82 mg/dl (70-99); Potassium 4.6 mmol/L (3.5-5.1); Sodium 136 mmol/L (135-145); eGFR > 60.00
[2023-12-04 09:24] LABS: Magnesium 2.4 mg/dl (1.6-2.3)
[2023-12-04 15:30] VITALS: BP 115/84
[2023-12-04] MEDS: ROWASA ENEMA RECTAL (20:05)
--- NOTE | 2023-12-04 20:21 | W.PN.GI.CBS2 ---
Today's Communication / Plan
-
PLAN:etiology of pancolitis related to UC flare, infectious process vs other
, Stool cultures, Cryptosporidium and Giardia cdiff neg, many WBC's noted in the stool.
CRP 27.7, fecal guerrero pending
cont mesalamine -- currently 1.6 gram BID and rowasa enema
Stool seem to be improving but still not completely better
Will start prednisone 40 mg a day with prolonged taper, decrease 10 mg/week
Will arrange for follow-up with Dr. Condon as outpatient
Tolerating low residue diet
If symptoms not better,consider eventual flex vs colon IP vs OP pending clinical course
Will follow
Assessment / Plan
-
Pt is a 38yo presents with longstanding ulcerative colitis since 2004 on chronic mesalamine prior cryptosporidium infection, vitamin D deficiency with onset of change in stool pattern with diarrhea for last month. He was recently in ER and
diagnosed with flu. He continued with nausea with dry heaves, abdominal pain and diarrhea and returns for evaluation. On admission CT noted with Pancolitis. The appearance as detailed above is most suspicious for ulcerative colitis. Infectious
etiology considered less likely . Hepatic fatty infiltration.
-abdominal pain with diarrhea
-nausea/dry heaves
-CT concern for pancolitis
-hx longstanding ulcerative colitis on chronic Mesalamine
-hypokalemia/hyponatremia
-recent flu +
-hx prior cryptosporidium
- hx cryptosporidium
PLAN:etiology of pancolitis related to UC flare, infectious process vs other
, Stool cultures, Cryptosporidium and Giardia cdiff neg, many WBC's noted in the stool.
CRP 27.7, fecal guerrero pending
cont mesalamine -- currently 1.6 gram BID and rowasa enema
Stool seem to be improving but still not completely better
Will start prednisone 40 mg a day with prolonged taper, decrease 10 mg/week
Will arrange for follow-up with Dr. Condon as outpatient
Tolerating low residue diet
If symptoms not better,consider eventual flex vs colon IP vs OP pending clinical course
Will follow
-
Subjective
Subjective
Date of Service: December 04, 2023
Patient denies any abdominal pain, reports 4 bowel movements today with 1 bowel movement with some blood
Objective
Data Reviewed
Laboratory Data:
Laboratory Results
12/04/23 07:31
12/04/23 07:31
Laboratory Results
Phosphorus 3.0 mg/dl (2.5-4.5) 12/04/23 07:31
Magnesium 2.4 mg/dl (1.6-2.3) H 12/04/23 07:31
Total Bilirubin 0.8 mg/dl (0.2-1.3) 12/02/23 08:34
AST 55 U/L (17-59) 12/02/23 08:34
ALT 105 U/L (0-50) H 12/02/23 08:34
Alkaline Phosphatase 87 U/L (38-126) 12/02/23 08:34
Lipase 90 U/L (23-300) 12/02/23 08:34
Vital Signs and I&O:
Vital Signs
Temp Pulse Resp BP Pulse Ox
97.3 F 66 16 115/84 99
12/04/23 15:30 12/04/23 15:30 12/04/23 15:30 12/04/23 15:30 12/04/23 15:30
I&O
12/03/23 12/04/23 12/05/23
06:59 06:59 06:59
Intake Total 2099 800 / 800
Balance 2099 800
Physical Exam
Physical Exam
GI: Soft, Non Distended and Non Tender
[2023-12-04] MEDS: ROXICODONE 10 MG PO (21:02)
[2023-12-04] MEDS: ROWASA ENEMA 60 ML RECTAL (21:02)
[2023-12-05 00:01] VITALS: BP 110/69
[2023-12-05] MEDS: NSS with KCL 20 MEQ 1000 IV (00:07)
[2023-12-05 06:36] LABS: Calprotectin, Fecal 399 ug/g (<=49)
[2023-12-05 07:25] VITALS: BP 127/69
[2023-12-05] MEDS: ASACOL, DELZICOL DR 1600 MG PO (07:56)
[2023-12-05] MEDS: DELTASONE 40 MG PO (07:57)
--- NOTE | 2023-12-05 08:15 | W.PN.HOSP.TC ---
Today's Communication/Plan
-
Cleared by GI for discharge today
Assessment / Plan
Assessment / Plan
HPI: 38-year-old male with a past medical history of ulcerative colitis on mesalamine presents with a 9-day history of worsening nausea, vomiting, diarrhea, and abdominal pain.� Patient was seen in the emergency room on 11/28/2023, diagnosed with the
flu, and discharged after IV hydration and antiemetics.� He reports persistent vomiting, diarrhea, and abdominal pain, which he feels has since worsened.� His diarrhea is liquid green.� Initially there were specks of blood, which has since
resolved.� Patient reports bilateral lower quadrant abdominal pain.� No fever, no chills.
CT abd/pelvis:
1. � Pancolitis. The appearance as detailed above is most suspicious for ulcerative colitis. Infectious etiology considered less likely.
2. � Hepatic fatty infiltration.
#Probable ulcerative colitis flare
Patient follows with Dr. Condon
Stool studies negative for C. difficile, negative for Cryptosporidium/Giardia, negative for Salmonella/Shigella, negative for Campylobacter/Shiga toxin.
Stool cultures neg, many white blood cells seen on stool leukocyte
GI following, recommend continue mesalamine p.o. and suppository
GI started prednisone 40 mg daily 12/04, recommended prolonged taper decrease by 10 mg/week
Cleared by GI for discharge, follow-up with his usual GI doctor in the office
#Fatty liver
Outpatient follow-up with GI
#Hypokalemia
Repleted and resolved
#Hypovolemic hyponatremia
IV fluids as above
#Hyperglycemia
Hemoglobin A1c 5.7
DVT prophylaxis�SCDs
Full code
Physical Exam
General: No acute distress
HEENT: Normocephalic, Atraumatic, EOMI, MMM
Respiratory: Clear to Auscultation bilaterally
Cardiac: Normal S1/S2, Regular Rate and Rhythm
GI: Soft, mild tender at the lower quadrants, Nondistended, Normal Bowel Sounds
Extremities: No Clubbing, Cyanosis, or Edema
Anticipated Discharge: Today
Subjective/Interval History
-
Date of Service: December 05, 2023
Diarrhea and abdominal pain improving. Stools are more formed. Tolerating his diet.
Objective Data
-
Labs:
Laboratory Results
12/05/23
08:10
WBC Pending
Hgb Pending
Hct Pending
Plt Count Pending
Sodium Pending
Potassium Pending
Chloride Pending
Carbon Dioxide Pending
BUN Pending
Creatinine Pending
Glucose Pending
Calcium Pending
Vital Signs:
Vital Signs
Temp Pulse Resp BP Pulse Ox
97.8 F 66 18 127/69 96
12/05/23 07:25 12/05/23 07:25 12/05/23 07:25 12/05/23 07:25 12/05/23 07:25
I&O
12/04/23 12/05/23 12/06/23
06:59 06:59 06:59
Intake Total 1979 1700 / 1700
Balance 1979 1700 / 1700
[2023-12-05 09:04] LABS: Hematocrit 42.7 % (39.0-52.0); Hemoglobin 14.4 g/dL (13.0-18.0); Mean Corp Hgb Conc. 33.7 g/dL (33.0-37.0); Mean Platelet Volume 11.3 fL (7.4-10.4); Platelet Count 270 10^3/uL (130-400); Red Cell Dist. Width 12.6 % (11.5-14.5); White Blood Cell Count 5.8 10^3/uL (4.8-10.8)
[2023-12-05 09:31] LABS: Chloride 101 mmol/L (98-107); Sodium 135 mmol/L (135-145)
[2023-12-05 09:43] LABS: Blood Urea Nitrogen < 2 mg/dl (9-20); Calcium 8.1 mg/dl (8.4-10.2); Carbon Dioxide 24 mmol/L (22-30); Estimated Creatinine Clearance > 125 ml/min; Glucose 88 mg/dl (70-99); Magnesium 2.1 mg/dl (1.6-2.3); Phosphorus 2.9 mg/dl (2.5-4.5); eGFR > 60.00
--- NOTE | 2023-12-05 10:47 | W.PN.GI.CBS2 ---
Today's Communication / Plan
-
tolerating low residue diet
pt improving on prednisone
Assessment / Plan
-
Pt is a 38yo presents with longstanding ulcerative colitis since 2004 on chronic mesalamine prior cryptosporidium infection, vitamin D deficiency with onset of change in stool pattern with diarrhea for last month. He was recently in ER and
diagnosed with flu. He continued with nausea with dry heaves, abdominal pain and diarrhea and returns for evaluation. On admission CT noted with Pancolitis. The appearance as detailed above is most suspicious for ulcerative colitis. Infectious
etiology considered less likely . Hepatic fatty infiltration.
-abdominal pain with diarrhea
-nausea/dry heaves
-CT concern for pancolitis
-hx longstanding ulcerative colitis on chronic Mesalamine
-hypokalemia/hyponatremia
-recent flu +
-hx prior cryptosporidium
- hx cryptosporidium
PLAN: pancolitis, likely related to UC flare
-Stool cultures, Cryptosporidium and Giardia cdiff neg, many WBC's noted in the stool.
CRP 27.7, fecal guerrero 399
-cont mesalamine -- currently 1.6 gram BID and rowasa enema
-pt started on prednisone 40 mg a day with prolonged taper, decrease 10 mg/week; feeling much better
-abdominal pain improved (down to 1 out of 10)
-had formed bowel movement this AM with no blood
-tolerating low residue diet
-Will arrange for follow-up with Dr. Condon as outpatient
-
Subjective
Subjective
Date of Service: December 05, 2023
Feeling much better.
Abdominal pain improved (11/12), had formed BM without blood this AM
no n/v or fever/chills
Objective
Data Reviewed
Laboratory Data:
Laboratory Results
12/05/23 08:10
12/05/23 08:10
Laboratory Results
Phosphorus 2.9 mg/dl (2.5-4.5) 12/05/23 08:10
Magnesium 2.1 mg/dl (1.6-2.3) 12/05/23 08:10
Total Bilirubin 0.8 mg/dl (0.2-1.3) 12/02/23 08:34
AST 55 U/L (17-59) 12/02/23 08:34
ALT 105 U/L (0-50) H 12/02/23 08:34
Alkaline Phosphatase 87 U/L (38-126) 12/02/23 08:34
Lipase 90 U/L (23-300) 12/02/23 08:34
Vital Signs and I&O:
Vital Signs
Temp Pulse Resp BP Pulse Ox
97.8 F 66 18 127/69 96
12/05/23 07:25 12/05/23 07:25 12/05/23 07:25 12/05/23 07:25 12/05/23 07:25
I&O
12/04/23 12/05/23 12/06/23
06:59 06:59 06:59
Intake Total 1979 1700 / 1700
Balance 1979 170 / 170
Physical Exam
Physical Exam
GI: Soft, Non Distended, Non Tender and Normal Bowel Sounds
--- NOTE | 2023-12-05 12:00 | W.DCSUMMARY ---
Discharge Summary
Discharge Data
Date of Admission: 12/02/23
Date of Discharge: 12/05/23
-
Pending Results: No
Hospital Course
Discharge diagnoses:
Ulcerative colitis flare
Dehydration
Hypokalemia
Fatty liver
Hypovolemic hyponatremia
Hyperglycemia, hemoglobin A1c 5.7
Consults: GI
CT abdomen pelvis:
1. � Pancolitis. The appearance as detailed above is most suspicious for ulcerative colitis. Infectious etiology considered less likely.
2. � Hepatic fatty infiltration.
Hospital course:
38-year-old male with a past medical history of ulcerative colitis on mesalamine presents with a 9-day history of worsening nausea, vomiting, diarrhea, and abdominal pain.� Patient was seen in the emergency room on 11/28/2023, diagnosed with the flu,
and discharged after IV hydration and antiemetics.� He reports persistent vomiting, diarrhea, and abdominal pain, which he feels has since worsened.� His diarrhea is liquid green.
Patient was seen in conjunction with GI for ulcerative colitis flare. Stool studies were negative for�C. difficile, negative for Cryptosporidium/Giardia, negative for Salmonella/Shigella, negative for Campylobacter/Shiga toxin. Stool cultures were
also negative, there were many white blood cells seen in stools.
Patient was treated with oral mesalamine as well as mesalamine enemas. He was started on prednisone 40 mg p.o. daily. His diarrhea improved, and became more formed. He did have some blood initially, that resolved. He tolerated his low residue
diet.
Patient also had hyponatremic hypovolemia, and hypokalemia. He received IV fluids and potassium replacement. His hyponatremia and hypokalemia resolved.
Patient felt remarkably better, and is medically stable for discharge. He will be discharged on oral mesalamine, mesalamine suppository, as well as a prednisone taper. GI would like him to take 40 mg daily, then decrease by 10 mg every week. He
has been instructed to follow-up with his primary care doctor in 1 week, as well as his usual GI doctor in the office.
Disposition: Home self-care
Discharge planning: Required 36 minutes
Discharge Plan
-
Patient Disposition: Home (Routine Discharge)
Discharge Diagnosis/Procedures: Ulcerative colitis flare, dehydration, hypokalemia
Condition: Good
Diet: Low Residue
Activity: As tolerated
Driving Restrictions: As prior to admission
Referrals:
Alix Cerna PA [Family Provider] - in one week
Alexa Condon DO [Active] - in two to three weeks
Prescriptions:
New
oxycodone 5 mg Tablet
5 mg PO Q4HPRN PRN (Reason: moderate pain) Qty: 20 0RF
prednisone 10 mg tablet
10 mg PO .TAPER Qty: 70 0RF
Rx Instructions:
Take 40mg daily x7 days, 30mg daily x7 days,
20mg daily x7 days, 10mg daily x 7 days.
mesalamine 4 gram/60 mL Enema
4 g NC HS 30 Days Qty: 1800 0RF
Continued
ondansetron 4 mg Tablet,Disintegrating
4 mg PO Q8H PRN (Reason: nausea/vomiting)
Excedrin Extra Strength 250-250-65 mg Tablet
2 tab PO BIDPRN PRN (Reason: mild pain)
mesalamine 800 mg Tablet,Delayed Release (Dr/Ec)
1,600 mg PO BID
Discharge Orders:
Discharge Patient (As Directed); Ordered 12/05/23
Ordered By: Marcos Gabriel
[2023-12-05] MEDS: NSS with KCL 20 MEQ IV (12:07)
--- NOTE | 2023-12-05 12:39 | CM ---
Chart reviewed home when stable, no needs
Plan; Home no needs.
== END 2023-12-05 15:08 | disposition home or self-care (01) | DRG 386 ==
LOC: 4 WEST ACU 14:38
PROVIDERS: Nurse Practitioner Adult Health; Physician Assistant; ADMITTING PHYSICIAN Family Medicine; CONSULT PHYSICIAN Internal Medicine Gastroenterology; EMERGENCY PHYSICIAN Emergency Medicine; FAMILY PHYSICIAN Physician Assistant Medical
DX: K51.90 Ulcerative colitis, unspecified, without complications (principal); E87.1 Hypo-osmolality and hyponatremia; E87.6 Hypokalemia; E86.0 Dehydration; J30.89 Other allergic rhinitis; K76.0 Fatty (change of) liver, not elsewhere classified; E86.1 Hypovolemia; R73.9 Hyperglycemia, unspecified; E55.9 Vitamin D deficiency, unspecified; K21.9 Gastro-esophageal reflux disease without esophagitis; Z86.19 Personal history of other infectious and parasitic diseases
CPT/HCPCS: 71046; 74177; 80048; 80053; 83036; 83690; 83735; 83993; 84100; 85025; 85027; 86140; 87045; 87046; 87324; 87328; 87329; 87427; 87449; 89055; 96361; 96374; 99285; Q9967

== ENCOUNTER → 2024-03-09 16:14 | Outpatient (REF) | payer BC, SELFPAY ==
[2024-03-09 17:44] LABS: % Basophils 1.5 % (0-2); % Eosinophils 11.6 % (0-6); % Immature Granulocytes 0.6 % (0-0.5); % Lymphocytes 29.9 % (20.5-51.1); % Monocytes 14.5 % (1.7-9.3); % Neutrophils 41.9 % (42.2-75.2); Absolute Basophils 0.1 10^3/uL (0-0.2); Absolute Eosinophils 0.6 10^3/uL (0-0.7); Absolute Lymphocytes 1.6 10^3/uL (1.2-3.4); Absolute Monocytes 0.8 10^3/uL (0.1-0.6); Absolute Neutrophils 2.2 10^3/uL (1.4-6.5); Hematocrit 40.5 % (39.0-52.0); Hemoglobin 13.9 g/dL (13.0-18.0); Mean Corp Hgb Conc. 34.3 g/dL (33.0-37.0); Mean Corpuscular Hgb 30.7 pg (27.0-31.0); Mean Corpuscular Volume 89.4 fL (80.0-94.0); Mean Platelet Volume 10.5 fL (7.4-10.4); Nucleated Red Blood Cells % 0 % (-); Platelet Count 286 10^3/uL (130-400); Red Blood Cell Count 4.53 10^6/uL (4.70-6.10); White Blood Cell Count 5.2 10^3/uL (4.8-10.8)
[2024-03-09 17:51] LABS: Erythrocyte Sed Rate 26 mm/hour (0-20)
[2024-03-09 18:13] LABS: ALT (SGPT) 24 U/L (0-50); AST (SGOT) 23 U/L (17-59); Albumin 3.9 g/dl (3.5-5.0); Alkaline Phosphatase 77 U/L (38-126); Blood Urea Nitrogen 11 mg/dl (9-20); Calcium 9.1 mg/dl (8.4-10.2); Carbon Dioxide 28 mmol/L (22-30); Chloride 101 mmol/L (98-107); Glucose 75 mg/dl (70-99); Potassium 4.2 mmol/L (3.5-5.1); Sodium 139 mmol/L (135-145); Total Bilirubin 0.4 mg/dl (0.2-1.3); Total Protein 6.4 g/dl (6.3-8.2); eGFR > 60.00
[2024-03-09 18:29] LABS: Vitamin D, 25-OH*** < 12.8 ng/mL (30-80)
== END ==
LOC: REG 16:14
PROVIDERS: ATTENDING PHYSICIAN Internal Medicine
DX: K51.911 Ulcerative colitis, unspecified with rectal bleeding (principal)
CPT/HCPCS: 36415; 80053; 82306; 85025; 85652; 86140

== ENCOUNTER → 2024-03-11 06:35 | Day surgery (SDC) | payer BC, SELFPAY | LOC: GI 06:35 | PROVIDERS: ATTENDING PHYSICIAN Internal Medicine | DX: K51.00 Ulcerative (chronic) pancolitis without complications (principal) | CPT/HCPCS: 45380; 88305; 88342 ==

== ENCOUNTER → 2024-03-27 09:47 | Outpatient (REF) | payer BC, SELFPAY ==
[2024-03-30 03:31] LABS: Hepatitis B Surface Antigen Negative (Negative)
[2024-03-30 03:49] LABS: Hepatitis B Core Ab, Total Negative (Negative); Hepatitis B Surface Antibody Positive
== END ==
LOC: REG 09:47
PROVIDERS: ATTENDING PHYSICIAN Internal Medicine
DX: K51.90 Ulcerative colitis, unspecified, without complications (principal)
CPT/HCPCS: 36415; 86480; 86704; 86706; 87340

== ENCOUNTER → 2024-05-18 09:27 | Outpatient (REF) | payer BC, SELFPAY ==
[2024-05-18 11:12] LABS: C-Reactive Protein < 5.00 mg/L (0.0-10.00)
[2024-05-18 11:13] LABS: Total Iron Binding Capacity 285 ug/dl (261-462)
[2024-05-18 11:31] LABS: Vitamin D, 25-OH*** 36.4 ng/mL (30-80)
[2024-05-18 11:36] LABS: Erythrocyte Sed Rate 8 mm/hour (0-20)
[2024-05-18 11:49] LABS: Ferritin 36.7 ng/ml (17.9-464.0)
[2024-05-18 12:05] LABS: Vitamin B12 300 pg/ml (239-931)
[2024-05-20 09:04] LABS: Quantiferon Mitogen minus NIL 7.77 IU/mL; Quantiferon NIL 0.01 IU/mL; Quantiferon Plus TB1 minus NIL 0.02 IU/mL (<=0.34); Quantiferon Plus TB2 minus NIL 0.04 IU/mL (<=0.34); Quantiferon TB Gold Plus Negative (Negative)
== END ==
LOC: REG 09:27
PROVIDERS: ATTENDING PHYSICIAN Internal Medicine; FAMILY PHYSICIAN Physician Assistant Medical
DX: K51.90 Ulcerative colitis, unspecified, without complications (principal)
CPT/HCPCS: 36415; 82306; 82607; 82728; 83520; 83550; 85652; 86140; 86480

== ENCOUNTER → 2024-11-29 10:26 | Outpatient (REF) | payer BC, SELFPAY ==
[2024-11-29 11:10] LABS: % Basophils 0.9 % (0-2); % Eosinophils 2.6 % (0-6); % Immature Granulocytes 0.3 % (0-0.5); % Lymphocytes 25.9 % (20.5-51.1); % Monocytes 7.5 % (1.7-9.3); % Neutrophils 62.8 % (42.2-75.2); Absolute Basophils 0.1 10^3/uL (0-0.2); Absolute Eosinophils 0.2 10^3/uL (0-0.7); Absolute Lymphocytes 1.5 10^3/uL (1.2-3.4); Absolute Monocytes 0.4 10^3/uL (0.1-0.6); Absolute Neutrophils 3.6 10^3/uL (1.4-6.5); Hematocrit 46.6 % (39.0-52.0); Hemoglobin 16.2 g/dL (13.0-18.0); Mean Corp Hgb Conc. 34.8 g/dL (33.0-37.0); Mean Corpuscular Hgb 30.9 pg (27.0-31.0); Mean Corpuscular Volume 88.8 fL (80.0-94.0); Mean Platelet Volume 10.2 fL (7.4-10.4); Nucleated Red Blood Cells % 0 % (-); Platelet Count 202 10^3/uL (130-400); Red Blood Cell Count 5.25 10^6/uL (4.70-6.10); Red Cell Dist. Width 12.6 % (11.5-14.5); White Blood Cell Count 5.8 10^3/uL (4.8-10.8)
[2024-11-29 11:25] LABS: ALT (SGPT) 41 U/L (0-50); AST (SGOT) 33 U/L (17-59); Albumin 4.7 g/dl (3.5-5.0); Alkaline Phosphatase 53 U/L (38-126); Blood Urea Nitrogen 13 mg/dl (9-20); Calcium 9.1 mg/dl (8.4-10.2); Carbon Dioxide 30 mmol/L (22-30); Chloride 102 mmol/L (98-107); Glucose 95 mg/dl (70-99); HDL Cholesterol 62 mg/dl; LDL Cholesterol, Calculated 156 mg/dl; Potassium 4.8 mmol/L (3.5-5.1); Sodium 139 mmol/L (135-145); Total Cholesterol 240 mg/dl (50-199); Total Protein 7.3 g/dl (6.3-8.2); Triglyceride 110 mg/dl (10-149); Very Low Density Lipoprotein 22 mg/dl (0-30); eGFR > 60.00
[2024-11-29 11:28] LABS: C-Reactive Protein < 5.00 mg/L (0.0-10.00)
[2024-11-29 11:45] LABS: Vitamin D, 25-OH*** 20.4 ng/mL (30-80)
== END ==
LOC: REG 10:26
PROVIDERS: ATTENDING PHYSICIAN Internal Medicine
DX: K51.911 Ulcerative colitis, unspecified with rectal bleeding (principal); E55.9 Vitamin D deficiency, unspecified
CPT/HCPCS: 36415; 80053; 80061; 82306; 85025; 86140

== ENCOUNTER 2025-03-14 06:24 | Day surgery (SDC) | payer BC, SELFPAY | END 2025-03-14 10:48 | disposition home or self-care (01) | LOC: GI 06:24 | PROVIDERS: ATTENDING PHYSICIAN Internal Medicine | DX: K51.00 Ulcerative (chronic) pancolitis without complications (principal); K57.30 Diverticulosis of large intestine without perforation or abscess without bleeding; K52.89 Other specified noninfective gastroenteritis and colitis; K51.20 Ulcerative (chronic) proctitis without complications | CPT/HCPCS: 45380; 88305; 88342 ==

== ENCOUNTER → 2025-04-05 08:34 | Outpatient (REF) | payer BC, SELFPAY ==
[2025-04-05 09:08] LABS: Hematocrit 43.6 % (39.0-52.0); Hemoglobin 14.8 g/dL (13.0-18.0); Mean Corp Hgb Conc. 33.9 g/dL (33.0-37.0); Mean Corpuscular Hgb 31.8 pg (27.0-31.0); Mean Corpuscular Volume 93.8 fL (80.0-94.0); Mean Platelet Volume 10.8 fL (7.4-10.4); Platelet Count 210 10^3/uL (130-400); Red Blood Cell Count 4.65 10^6/uL (4.70-6.10); Red Cell Dist. Width 12.5 % (11.5-14.5); White Blood Cell Count 4.4 10^3/uL (4.8-10.8)
[2025-04-05 09:57] LABS: C-Reactive Protein < 5.00 mg/L (0.0-10.00)
[2025-04-05 10:08] LABS: ALT (SGPT) 32 U/L (0-50); AST (SGOT) 27 U/L (17-59); Albumin 4.7 g/dl (3.5-5.0); Alkaline Phosphatase 54 U/L (38-126); Blood Urea Nitrogen 16 mg/dl (9-20); Carbon Dioxide 24 mmol/L (22-30); Chloride 112 mmol/L (98-107); Glucose 93 mg/dl (70-99); Potassium 4.5 mmol/L (3.5-5.1); Sodium 141 mmol/L (135-145); Total Bilirubin 0.5 mg/dl (0.2-1.3); eGFR > 60.00
[2025-04-05 10:26] LABS: Hepatitis B Surface Antigen Negative (Negative)
[2025-04-05 10:45] LABS: Hepatitis B Core Ab, Total Negative (Negative)
[2025-04-07 15:34] LABS: Quantiferon Mitogen minus NIL 6.82 IU/mL; Quantiferon NIL 0.02 IU/mL; Quantiferon Plus TB1 minus NIL 0.03 IU/mL (<=0.34); Quantiferon Plus TB2 minus NIL 0.03 IU/mL (<=0.34); Quantiferon TB Gold Plus Negative (Negative)
== END ==
LOC: REG 08:34
PROVIDERS: ATTENDING PHYSICIAN Internal Medicine
DX: K51.90 Ulcerative colitis, unspecified, without complications (principal)
CPT/HCPCS: 36415; 80053; 82306; 85027; 86140; 86480; 86704; 87340

== ENCOUNTER → 2025-07-05 09:53 | Outpatient (REF) | payer BC, SELFPAY ==
[2025-07-05 10:35] LABS: Hematocrit 42.6 % (39.0-52.0); Hemoglobin 14.8 g/dL (13.0-18.0); Mean Corp Hgb Conc. 34.7 g/dL (33.0-37.0); Mean Corpuscular Volume 90.3 fL (80.0-94.0); Platelet Count 233 10^3/uL (130-400); Red Cell Dist. Width 12.7 % (11.5-14.5)
[2025-07-05 11:08] LABS: ALT (SGPT) 34 U/L (0-50); AST (SGOT) 28 U/L (17-59); Albumin 4.6 g/dl (3.5-5.0); Alkaline Phosphatase 38 U/L (38-126); Blood Urea Nitrogen 15 mg/dl (9-20); Calcium 9.1 mg/dl (8.4-10.2); Carbon Dioxide 25 mmol/L (22-30); Chloride 108 mmol/L (98-107); Glucose 119 mg/dl (70-99); Potassium 4.0 mmol/L (3.5-5.1); Sodium 140 mmol/L (135-145); Total Protein 6.8 g/dl (6.3-8.2); eGFR > 60.00
== END ==
LOC: REG 09:53
PROVIDERS: ATTENDING PHYSICIAN Internal Medicine
DX: K51.911 Ulcerative colitis, unspecified with rectal bleeding (principal)
CPT/HCPCS: 36415; 80053; 85027